=== PATIENT | female | born 1960 | race Caucasian/White ===

== ENCOUNTER 2017-03-08 09:06 | Emergency (ER) | payer OTHER ==
[~2017-03-08] VITALS: Ht 160 cm; Wt 61.4 kg
[2017-03-08 09:06] VITALS: BP 120/78; PULSE 71; RESP 16; O2SAT 99
--- NOTE | 2017-03-08 09:23 | ED.REPORT ---
HPI-Extremity Problem Lower Date of Service Mar 08, 2017 ED Provider: Sohail Bojorquez MD Patient is a 56 year old female who presents to the ED after falling down the stairs at her home just prior to arrival. She complains of left ankle pain and difficulty bearing weigh secondary to pain. The patient reports that she wasn't watching where she was going and missed a step. Patient reports that her foot inverted and she landed on it. She denies numbness, weakness or other symptoms at this time. Nursing Notes Stated Complaint: LEFT ANKLE INJURY Chief Complaint: Extremity Trauma Nursing Notes Reviewed: Yes Allergies: Coded Allergies: No Known Allergies (Unverified , 03/08/17) General Time Seen by MD: 09:22 Chief Complaint Ankle injury left Hx Obtained From: Patient Arrived By: Walk-in Onset Occurred: Just prior to arrival Symptom Duration: Since onset Caused by: Fall on ground Location: : Ankle left Quality: Painful Severity: Current: Moderate Associated with: Reports: Unable to bear weight Exacerbated by: Movement Similar Sx Previous: No Past Medical History Smoking History Unknown if Ever Smoker Ambulatory Status Independent Review of Systems Constitutional: Denies: Chills, Fever Musculoskeletal: Reports: Extremity pain Skin: Denies Itching, Denies Rash Neurologic: Reports: Problem walking, Denies: Numbness, Weakness Complete sys rev & neg: except as marked. Respiratory: Denies: Non-productive cough, Shortness of breath Physical Exam Initial Vital Signs Vital Signs (First) Date Time Temp Pulse Resp B/P Pulse Ox O2 Delivery O2 Flow Rate FiO2 03/08/17 09:06 36.1 71 16 120/78 99 Room Air Initial VS: Reviewed Lower Extremity / Pelvis / MS: Atraumatic, Inspection NL Ankle / Foot: Neurologic intact, Vascular intact lateral malleolus tenderness inferior to the lateral malleolus tenderness no gross deformity General/Constitutional: Awake, Alert Respiratory / Chest: Atraumatic, Breath sounds NL, Breath sounds = bilat, No respiratory distress Skin: Atraumatic, Color NL, No rash, Warm, Dry Neurologic: Oriented X3, Speech NL Head / Eyes: Atraumatic, Normocephalic, PERRL, EOMI Upper Extremity / MS: Atraumatic, Full range of motion Psychiatric: Affect NL, Mood NL Interpretation & Diagnostics X-Ray Interpretation Xray Interpretation: IMPRESSION: Normal ankle Dictated by: Doe South M.D. on 03/08/2017 at 9:43 Approved by: Doe South M.D. on 03/08/2017 at 9:43 X-Ray Ordered: Ankle left Interpretation / Wet Read by: Interpret - Radiologist Procedures Splint Application - Fx Mgt Splint Application- Fx Mgt: L ankle Procedure Performed by: ED physician Precise Anatomic Location: Left ankle Definitive Fracture Care: Pain control, Splint Post-Procedure / Complications: Cap refill normal, Post splint neuro nl, Condition improved, Tolerated procedure well, Patient stable Splint Post-Application Eval Splint Post-Application Eval: L ankle splint Extremity Condition: Cap refill < 2 sec, Distal sensation intact, Distal motor Intact, No compartment syndrome Re-Eval/Medical Decision Med Decision/Clinical Course Left ankle sprain. No evidence of fracture. Weightbearing as tolerated. Crutches as needed. Given a left ankle splint. Neurovascular intact status post placement. Follow-up with primary doctor 1 week return precautions given. Re-Evaluation/Progress : Re-Evaluation/Progress Note: Discussed X-ray results and plan for discharge. Patient understands and agrees to plan. All questions were addressed. Counseled Regarding: Diagnosis, Lab results, Need for follow-up, When/why to return to ED Discharge & Departure Impression: Primary Impression: Ankle sprain Encounter type: initial encounter Involved ligament of ankle: unspecified ligament Laterality: left Qualified Code: S93.402A - Sprain of unspecified ligament of left ankle, initial encounter Disposition: Home Discharge Condition All VS Reviewed: Yes Condition: Stable Patient Instructions: Ankle Sprain (GEN) Additional Instructions: Your ankle X-ray was normal and reassuring. There was no evidence of a fracture. You likely sprained your ankle. You can try icing it to help with the pain. You can also take Tylenol as needed. Follow up with your primary care physician or the referred orthopedic doctor next week if symptoms persist. Return to the emergency department if you develop any new or concerning symptoms. Referrals: Panchito Boyd Attestation Portions of this note were transcribed by Katherin Cao. I, Dr. Bojorquez personally performed the history, physical exam and medical decision-making; I reviewed and confirmed the accuracy of the information in the transcribed note. Signed by: Nichole Hughes, 03/08/17. copies to: Panchito Boyd Ben M MD Mar 08, 2017 09:23 Nae Cao Mar 08, 2017 10:02
--- NOTE | 2017-03-08 09:45 | DRSVH ---
PROCEDURE: X-RAY LEFT ANKLE, MINIMUM THREE VIEWS ([id number]) INDICATIONS: trauma TECHNIQUE: 3 views of the ankle were acquired. COMPARISON: None. FINDINGS: Bones: No fractures or dislocations. Ankle mortise is normally aligned. No suspicious bony lesions . Soft tissues: No tibiotalar joint effusion. Achilles tendon appears normal. IMPRESSION: Normal ankle Dictated by: Doe South M.D. on 03/08/2017 at 9:43 Approved by: Doe South M.D. on 03/08/2017 at 9:43
[2017-03-08 10:32] VITALS: BP 108/67; PULSE 72; RESP 15; O2SAT 99
== END 2017-03-08 10:33 | disposition home or self-care (01) ==
LOC: SED 09:06
DX: S93.492A Sprain of other ligament of left ankle, initial encounter (principal); W10.8XXA Fall (on) (from) other stairs and steps, initial encounter; Y93.89 Activity, other specified; Y92.009 Unspecified place in unspecified non-institutional (private) residence as the place of occurrence of the external cause; Y99.8 Other external cause status
CPT/HCPCS: 29515; 73610; 96372; 99284; J1885